=== PATIENT | female | born 1970 | race Caucasian/White ===

== ENCOUNTER 2016-12-02 23:05 | Inpatient (IN) | payer OTHER, MEDICAID ==
[~2016-12-02] VITALS: Ht 167.6 cm; Wt 156.0 kg
[~2016-12-02 23:05] MED LIST: ANT12.5 PO; CIPRODEX7.5 ML AD; KEFLEX500 MG PO; LAC PO; OXYBUTYNIN CHLOR5 MG PO
[2016-12-03] VITALS (7 sets, daily range): BP systolic 89–145; BP diastolic 56–87
[2016-12-03 00:28] LABS: BASOPHIL % 0.5 % (0-2); PLATELET COUNT 255 x10^3mcL (130-400)
[2016-12-03 00:29] LABS: RED CELL DISTRIBUTION WIDTH 15.2 % (11.5-14.5)
[2016-12-03 00:34] LABS: CALCIUM 8.3 mg/dL (8.5-10.1); CARBON DIOXIDE 26.3 mmol/L (21-32); CHLORIDE SERUM 104 mmol/L (98-107); GFR1 > 60 mL/min; GLUCOSE SERUM 125 mg/dL (74-106); POTASSIUM SERUM 3.8 mmol/L (3.5-5.1); SODIUM SERUM 140 mmol/L (136-145)
[2016-12-03 00:39] LABS: ALKALINE PHOSPHATASE 100 U/L (46-116); ALT/SGPT 22 U/L (14-59); AST/SGOT 14 U/L (15-37); BILIRUBIN TOTAL 0.2 mg/dL (0.20-1.00); TOTAL PROTEIN, SERUM 7.3 g/dL (6.4-8.2)
[2016-12-03 00:42] LABS: ALBUMIN 3.1 g/dL (3.4-5.0)
[2016-12-03 01:46] LABS: UA SPECIFIC GRAVITY 1.025 (1.005-1.035); microscopic required? YES; urine erythrocyte TRACE (NEGATIVE)
[2016-12-03] MEDS ORDERED: NOR10T PO (02:23)
[2016-12-03 03:50] LABS: CHOLESTEROL/HDL RATIO 3.6; FREE T4 1.1 ng/dL (0.76-1.46); FREE THYROXINE INDEX 2.5 ug/dL (1.4-4.5); MAGNESIUM 1.8 mg/dL (1.8-2.4); T4(THYROXINE) 8.2 ug/dL (4.7-13.3)
[2016-12-03 03:52] LABS: T3 TOTAL 1.15 ng/mL
[2016-12-03 04:52] LABS: AMPHETAMINE QUAL UR NONE DETECTED (NEG <=1000)
[2016-12-04 05:58] VITALS: BP 134/70
[2016-12-04 07:28] LABS: BASOPHIL % 0.4 % (0-2); PLATELET COUNT 231 x10^3mcL (130-400)
[2016-12-04 07:29] LABS: RED CELL DISTRIBUTION WIDTH 14.9 % (11.5-14.5)
[2016-12-04 07:37] LABS: CALCIUM 7.5 mg/dL (8.5-10.1); CARBON DIOXIDE 26.6 mmol/L (21-32); CHLORIDE SERUM 109 mmol/L (98-107); GFR1 > 60 mL/min; GLUCOSE SERUM 90 mg/dL (74-106); MAGNESIUM 1.8 mg/dL (1.8-2.4); PHOSPHOROUS 3.2 mg/dL (2.5-4.9); POTASSIUM SERUM 3.8 mmol/L (3.5-5.1); SODIUM SERUM 142 mmol/L (136-145)
[2016-12-04 09:38] VITALS: BP 114/74
[2016-12-04 15:36] VITALS: BP 135/90
[2016-12-04 18:28] VITALS: BP 136/84
[2016-12-04 21:56] VITALS: BP 133/64
[2016-12-05 05:58] VITALS: BP 124/62
[2016-12-05 07:12] LABS: BASOPHIL % 0.3 % (0-2); PLATELET COUNT 263 x10^3mcL (130-400)
[2016-12-05 07:14] LABS: RED CELL DISTRIBUTION WIDTH 15.1 % (11.5-14.5)
[2016-12-05 07:34] LABS: CALCIUM 7.6 mg/dL (8.5-10.1); CARBON DIOXIDE 24.2 mmol/L (21-32); CREATININE SERUM 1.1 mg/dL (0.6-1.0); MAGNESIUM 1.8 mg/dL (1.8-2.4); POTASSIUM SERUM 4.2 mmol/L (3.5-5.1)
[2016-12-05 09:08] VITALS: BP 110/65
[2016-12-05 09:27] VITALS: BP 123/81
[2016-12-05] MEDS ORDERED: CIP250 PO (14:51)
[2016-12-05] MEDS ORDERED: APAP/HYDROCODON1 T13 PO (14:52)
[2016-12-05] MEDS ORDERED: GAS RELIEF80 MG CH (14:53)
[2016-12-05] MEDS ORDERED: LAC PO (14:55)
[2016-12-05 16:10] VITALS: BP 123/81
[2016-12-05 18:32] VITALS: BP 145/80
== END 2016-12-05 19:37 | disposition home or self-care (01) | DRG 263 ==
LOC: ED 23:05 → DU 12-03 02:16 → MU 12-03 02:16 → DU 12-03 02:51 → MU 12-03 21:39
PROVIDERS: Emergency Medicine; ADMIT Family Medicine
PROC: 0FT44ZZ Resection of Gallbladder, Percutaneous Endoscopic Approach (ICD-10-PCS; principal; 2016-12-03)
DX: K80.00 Calculus of gallbladder with acute cholecystitis without obstruction (principal); E44.0 Moderate protein-calorie malnutrition; Z68.43 Body mass index [BMI] 50.0-59.9, adult; N12 Tubulo-interstitial nephritis, not specified as acute or chronic; E66.01 Morbid (severe) obesity due to excess calories; G89.29 Other chronic pain; M54.9 Dorsalgia, unspecified; D64.9 Anemia, unspecified; R32 Unspecified urinary incontinence; E78.5 Hyperlipidemia, unspecified; D35.02 Benign neoplasm of left adrenal gland; Z90.5 Acquired absence of kidney; Z85.520 Personal history of malignant carcinoid tumor of kidney
CPT/HCPCS: 80307; 82962; 83880; 84439; 94150; C9113; J0295; J0330; J0690; J0696; J1170; J1885; J2175; J2250; J2270; J2405; J2704; J2710; J3010; J3490; J7030; J7120; Q0092

== ENCOUNTER 2017-08-14 21:07 | Emergency (ER) | payer OTHER, MEDICAID ==
[~2017-08-14 21:07] MED LIST changes: +APAP/HYDROCODON1 T13 PO; +CIP250 PO; +GAS RELIEF80 MG CH; +NOR10T PO
[2017-08-14 22:34] VITALS: BP 120/88
== END 2017-08-14 22:34 | disposition home or self-care (01) ==
LOC: ED 21:07
DX: G89.29 Other chronic pain (principal); M54.9 Dorsalgia, unspecified; N39.0 Urinary tract infection, site not specified; E66.01 Morbid (severe) obesity due to excess calories; Z98.890 Other specified postprocedural states
CPT/HCPCS: J1885

== ENCOUNTER 2017-09-12 06:58 | Emergency (ER) | payer OTHER, MEDICAID ==
[2017-09-12 08:58] VITALS: BP 135/89
== END 2017-09-12 08:58 | disposition home or self-care (01) ==
LOC: ED 06:58
DX: J06.9 Acute upper respiratory infection, unspecified (principal); G89.29 Other chronic pain
CPT/HCPCS: J2001; J7620; Q0092

== ENCOUNTER 2018-02-07 21:45 | Inpatient (IN) | payer OTHER ==
[~2018-02-07] VITALS: Ht 167.6 cm; Wt 161.6 kg
[2018-02-07 22:36] LABS: BASOPHIL % 1.1 % (0-2); PLATELET COUNT 336 x10^3mcL (130-400)
[2018-02-07 22:51] LABS: CALCIUM 8.3 mg/dL (8.5-10.1); CARBON DIOXIDE 30.3 mmol/L (21-32); CHLORIDE SERUM 106 mmol/L (98-107); GFR1 > 60 mL/min; GLUCOSE SERUM 108 mg/dL (74-106); POTASSIUM SERUM 4.4 mmol/L (3.5-5.1); SODIUM SERUM 141 mmol/L (136-145)
[2018-02-07 22:55] LABS: ALKALINE PHOSPHATASE 109 U/L (46-116); ALT/SGPT 23 U/L (14-59); AST/SGOT 17 U/L (15-37); BILIRUBIN TOTAL 0.16 mg/dL (0.20-1.00); TOTAL PROTEIN, SERUM 6.9 g/dL (6.4-8.2)
[2018-02-07 22:58] LABS: ALBUMIN 2.9 g/dL (3.4-5.0)
[2018-02-08] MEDS ORDERED: VIC PO (00:02)
[2018-02-08] MEDS ORDERED: NORCO1 TA2 PO (00:02)
[2018-02-08 00:51] LABS: CHOLESTEROL/HDL RATIO 3.4; MAGNESIUM 1.9 mg/dL (1.8-2.4); PHOSPHOROUS 3.6 mg/dL (2.5-4.9)
[2018-02-08 01:00] VITALS: BP 131/60
[2018-02-08 01:00] LABS: FREE T4 0.82 ng/dL (0.76-1.46); FREE THYROXINE INDEX 2.4 ug/dL (1.4-4.5); T3 TOTAL 1.08 ng/mL; T4(THYROXINE) 7.6 ug/dL (4.7-13.3)
[2018-02-08 01:05] VITALS: Ht 167.6 cm; Wt 161.6 kg
[2018-02-08 01:32] LABS: TOTAL IRON BINDING CAPACITY 280 ug/dL (250-450)
[2018-02-08 01:50] LABS: IRON 31 ug/dL (50-170)
[2018-02-08 03:20] LABS: RED BLOOD CELLS 4.46 M/mm3 (4.10-5.10)
[2018-02-08 05:59] VITALS: BP 103/52
[2018-02-08 08:50] VITALS: BP 92/56
[2018-02-08 10:58] LABS: UA SPECIFIC GRAVITY 1.025 (1.005-1.035); microscopic required? YES; urine erythrocyte NEGATIVE (NEGATIVE)
[2018-02-08 11:11] LABS: AMPHETAMINE QUAL UR NONE DETECTED (NEG <=1000)
[2018-02-08 14:07] VITALS: BP 92/56
== END 2018-02-08 15:56 | disposition home or self-care (01) | DRG 203 ==
LOC: ED 21:45 → DU 02-08 00:07
PROVIDERS: Emergency Medicine; Family Medicine
DX: M94.0 Chondrocostal junction syndrome [Tietze] (principal); E43 Unspecified severe protein-calorie malnutrition; Z68.43 Body mass index [BMI] 50.0-59.9, adult; I10 Essential (primary) hypertension; G89.29 Other chronic pain; E66.01 Morbid (severe) obesity due to excess calories; E83.51 Hypocalcemia; D64.9 Anemia, unspecified; Z53.29 Procedure and treatment not carried out because of patient's decision for other reasons; E78.5 Hyperlipidemia, unspecified; R73.03 Prediabetes; Z90.49 Acquired absence of other specified parts of digestive tract; Z90.5 Acquired absence of kidney; Z85.53 Personal history of malignant neoplasm of renal pelvis; Z79.899 Other long term (current) drug therapy; Z82.49 Family history of ischemic heart disease and other diseases of the circulatory system; Z83.3 Family history of diabetes mellitus; Z80.9 Family history of malignant neoplasm, unspecified
CPT/HCPCS: 83880; 84439; J2405; J2765; J7030; J8597; Q0092

== ENCOUNTER 2019-02-17 17:58 | Emergency (ER) | payer OTHER, BC ==
[~2019-02-17] VITALS: Ht 170.2 cm; Wt 165.6 kg
[~2019-02-17 17:58] MED LIST changes: +NORCO1 TA2 PO; +VIC PO
[2019-02-17 18:26] VITALS: Ht 170.2 cm; Wt 165.6 kg
[2019-02-17 19:49] LABS: microscopic required? NO
[2019-02-17 20:08] LABS: BASOPHIL % 1.1 % (0-2); PLATELET COUNT 361 x10^3mcL (130-400); RED CELL DISTRIBUTION WIDTH 16.1 % (11.5-14.5)
[2019-02-17 20:09] LABS: CALCIUM 8.3 mg/dL (8.5-10.1); CARBON DIOXIDE 26.9 mmol/L (21-32); CHLORIDE SERUM 106 mmol/L (98-107); GFR1 > 60 mL/min; GLUCOSE SERUM 101 mg/dL (74-106); SODIUM SERUM 142 mmol/L (136-145)
[2019-02-17 20:12] LABS: UA SPECIFIC GRAVITY 1.025 (1.005-1.035); urine erythrocyte NEGATIVE (NEGATIVE)
[2019-02-17 20:14] LABS: ALKALINE PHOSPHATASE 112 U/L (46-116); ALT/SGPT 31 U/L (14-59); AST/SGOT 12 U/L (15-37); BILIRUBIN TOTAL 0.3 mg/dL (0.20-1.00); LIPASE 74 IU/L (73-393); TOTAL PROTEIN, SERUM 7.4 g/dL (6.4-8.2)
[2019-02-17 20:19] LABS: ALBUMIN 3.2 g/dL (3.4-5.0)
[2019-02-17 23:43] VITALS: BP 100/59
== END 2019-02-17 23:43 | disposition home or self-care (01) ==
LOC: ED 17:58
PROVIDERS: Emergency Medicine
DX: R10.31 Right lower quadrant pain (principal); R11.10 Vomiting, unspecified; R19.7 Diarrhea, unspecified; E66.9 Obesity, unspecified; G89.29 Other chronic pain; M54.9 Dorsalgia, unspecified; Z68.43 Body mass index [BMI] 50.0-59.9, adult; Z90.49 Acquired absence of other specified parts of digestive tract; Z85.528 Personal history of other malignant neoplasm of kidney
CPT/HCPCS: J1885; J2405; J7030; Q9967

== ENCOUNTER 2019-05-24 22:33 | Emergency (ER) | payer OTHER, BC ==
[~2019-05-24] VITALS: Ht 167.6 cm; Wt 167.8 kg
[2019-05-24 22:36] VITALS: Ht 167.6 cm; Wt 167.8 kg
[2019-05-25 01:15] LABS: BASOPHIL % 0.5 % (0-2); PLATELET COUNT 312 x10^3mcL (130-400)
[2019-05-25 01:21] LABS: RED CELL DISTRIBUTION WIDTH 15.8 % (11.5-14.5)
[2019-05-25 01:22] LABS: CALCIUM 8.2 mg/dL (8.5-10.1); CARBON DIOXIDE 26.3 mmol/L (21-32); CREATININE SERUM 1.2 mg/dL (0.6-1.0); POTASSIUM SERUM 4.2 mmol/L (3.5-5.1)
[2019-05-25 01:27] LABS: BILIRUBIN TOTAL 0.2 mg/dL (0.20-1.00); TOTAL PROTEIN, SERUM 7.3 g/dL (6.4-8.2)
[2019-05-25 01:32] LABS: ALBUMIN 3.1 g/dL (3.4-5.0)
[2019-05-25 03:04] LABS: microscopic required? YES; urine erythrocyte NEGATIVE (NEGATIVE)
[2019-05-25 03:10] VITALS: BP 105/78
== END 2019-05-25 03:10 | disposition home or self-care (01) ==
LOC: ED 22:33
PROVIDERS: Emergency Medicine
DX: N39.0 Urinary tract infection, site not specified (principal); R60.0 Localized edema; R07.89 Other chest pain; G89.29 Other chronic pain; Z98.890 Other specified postprocedural states
CPT/HCPCS: 36415; 83880; J1885; Q0092

== ENCOUNTER 2019-11-17 18:33 | Emergency (ER) | payer OTHER, BC ==
[~2019-11-17] VITALS: Ht 170.2 cm; Wt 140.6 kg
[2019-11-17 18:50] VITALS: Ht 170.2 cm; Wt 140.6 kg
[2019-11-17 20:51] VITALS: BP 133/71
== END 2019-11-17 20:51 | disposition home or self-care (01) ==
LOC: ED 18:33
DX: M54.5 Low back pain (principal); R35.0 Frequency of micturition
CPT/HCPCS: 72072; J1885

== ENCOUNTER 2020-06-12 17:33 | Emergency (ER) | payer OTHER, BC, SELFPAY ==
[~2020-06-12] VITALS: Ht 167.6 cm; Wt 154.2 kg
[2020-06-12 17:35] VITALS: Ht 167.6 cm; Wt 154.2 kg
[2020-06-12 19:40] VITALS: BP 130/81
== END 2020-06-12 19:40 | disposition home or self-care (01) ==
LOC: ED 17:33
DX: J40 Bronchitis, not specified as acute or chronic (principal); Z20.828 Contact with and (suspected) exposure to other viral communicable diseases; Z98.51 Tubal ligation status; Z85.528 Personal history of other malignant neoplasm of kidney
CPT/HCPCS: Q0092; U0003-CS

== ENCOUNTER 2020-10-13 20:18 | Emergency (ER) | payer OTHER, BC ==
[~2020-10-13] VITALS: Ht 170.2 cm; Wt 167.1 kg
[2020-10-13 20:32] VITALS: Ht 170.2 cm; Wt 167.1 kg
[2020-10-13 22:42] LABS: UA SPECIFIC GRAVITY 1.025 (1.005-1.035); microscopic required? YES; urine erythrocyte TRACE (NEGATIVE)
[2020-10-13 22:46] LABS: PLATELET COUNT 309 x10^3mcL (179-408)
[2020-10-13 22:48] LABS: RED CELL DISTRIBUTION WIDTH 16.1 % (12.3-17.7)
[2020-10-13 22:52] LABS: CALCIUM 8.5 mg/dL (8.5-10.1); CARBON DIOXIDE 30.1 mmol/L (21-32); CHLORIDE SERUM 107 mmol/L (98-107); GFR1 > 60 mL/min; GLUCOSE SERUM 96 mg/dL (74-106); POTASSIUM SERUM 4.8 mmol/L (3.5-5.1); SODIUM SERUM 141 mmol/L (136-145)
[2020-10-13 22:57] LABS: ALKALINE PHOSPHATASE 102 U/L (46-116); ALT/SGPT 22 U/L (14-59); AST/SGOT 9 U/L (15-37); BILIRUBIN TOTAL 0.2 mg/dL (0.20-1.00); LIPASE 88 IU/L (73-393); TOTAL PROTEIN, SERUM 7.1 g/dL (6.4-8.2)
[2020-10-13 23:05] LABS: BAND NEUTROPHIL 0 % (0-10); BASOPHIL 0 % (0-2); MONOCYTE 7 % (0-7); SEGMENTED NEUTROPHILS 65 % (37-75)
[2020-10-13 23:06] LABS: rbc morphology (normal/abnorm) NORMAL (NORMAL)
[2020-10-14 00:36] VITALS: BP 119/60
== END 2020-10-14 00:36 | disposition home or self-care (01) ==
LOC: ED 20:18
PROVIDERS: Emergency Medicine
DX: N39.0 Urinary tract infection, site not specified (principal); R22.43 Localized swelling, mass and lump, lower limb, bilateral; Z98.890 Other specified postprocedural states
CPT/HCPCS: J0696; J2270; J2405; J7030